=== PATIENT | female | born 1990 | race American Indian/Alaskan Native ===

== ENCOUNTER 2018-12-03 09:00 | Emergency (ER) | payer MEDICAID, OTHER ==
[2018-12-03 09:15] VITALS: BP 138/81
[2018-12-03] MEDS ORDERED: CLEOCIN PO ONE (09:49)
[2018-12-03] MEDS ORDERED: IBUPROFEN PO ONE (09:49)
--- NOTE | 2018-12-03 09:52 | Emergency Department Report ---
ED ENT HPI - General Chief complaint: Dental/Oral Stated complaint: TOOTHACHE Time Seen by Provider: 12/03/18 09:34 Source: patient Mode of arrival: Ambulatory Limitations: No Limitations - History of Present Illness Initial comments: Patient is presenting with pain in tooth #17 for the past 2-3 days. There's been some increased swelling of the jaw. Patient has no difficulty swallowing or breathing. Patient states the pain is 8 out of 10 in severity. Patient states there is some radiation of the pain to the left ear. - Related Data Previous Rx's Medication Instructions Recorded Last Taken Type traMADol [Ultram 50 MG tab] 50 mg PO Q6HR PRN #14 tablet 07/21/14 Unknown Rx Penicillin Vk [Veetids TAB] 500 mg PO QID 10 Days tablet 05/24/15 Unknown Rx Clindamycin [Clindamycin CAP] 300 mg PO Q8H #21 cap 12/03/18 Unknown Rx HYDROcodone/ACETAMINOPHEN 1 each PO Q6HR PRN #12 tablet 12/03/18 Unknown Rx [Hydrocodone-Acetamin 5-325 mg] Ibuprofen [Ibu] 800 mg PO Q8H PRN #20 tablet 12/03/18 Unknown Rx Allergies Allergy/AdvReac Type Severity Reaction Status Date / Time shellfish derived Allergy Rash Verified 12/03/18 09:12 ED Dental HPI - General Chief complaint: Dental/Oral Stated complaint: TOOTHACHE Time Seen by Provider: 12/03/18 09:34 Source: patient Mode of arrival: Ambulatory Limitations: No Limitations - Related Data Previous Rx's Medication Instructions Recorded Last Taken Type traMADol [Ultram 50 MG tab] 50 mg PO Q6HR PRN #14 tablet 07/21/14 Unknown Rx Penicillin Vk [Veetids TAB] 500 mg PO QID 10 Days tablet 05/24/15 Unknown Rx Clindamycin [Clindamycin CAP] 300 mg PO Q8H #21 cap 12/03/18 Unknown Rx HYDROcodone/ACETAMINOPHEN 1 each PO Q6HR PRN #12 tablet 12/03/18 Unknown Rx [Hydrocodone-Acetamin 5-325 mg] Ibuprofen [Ibu] 800 mg PO Q8H PRN #20 tablet 12/03/18 Unknown Rx Allergies Allergy/AdvReac Type Severity Reaction Status Date / Time shellfish derived Allergy Rash Verified 12/03/18 09:12 ED Review of Systems ROS: Stated complaint: TOOTHACHE Other details as noted in HPI Comment: All other systems reviewed and negative ED Past Medical Hx - Surgical History Hx Breast Surgery: Yes (LUMPECTOMY) Additional Surgical History: Lumpectomy on Left Breast - Social History Smoking Status: Current Every Day Smoker Substance Use Type: Alcohol - Medications Home Medications: Home Medications Medication Instructions Recorded Confirmed Last Taken Type traMADol [Ultram 50 MG tab] 50 mg PO Q6HR PRN #14 tablet 07/21/14 Unknown Rx Penicillin Vk [Veetids TAB] 500 mg PO QID 10 Days tablet 05/24/15 Unknown Rx Clindamycin [Clindamycin CAP] 300 mg PO Q8H #21 cap 12/03/18 Unknown Rx HYDROcodone/ACETAMINOPHEN 1 each PO Q6HR PRN #12 tablet 12/03/18 Unknown Rx [Hydrocodone-Acetamin 5-325 mg] Ibuprofen [Ibu] 800 mg PO Q8H PRN #20 tablet 12/03/18 Unknown Rx ED Physical Exam - General Limitations: No Limitations General appearance: alert, in no apparent distress - Head Head exam: Present: atraumatic, normocephalic - Eye Eye exam: Present: normal appearance - ENT ENT exam: Present: mucous membranes moist - Expanded ENT Exam Expanded Teeth exam: Present: dental caries 1 - Fractured, Dental Tenderness, Other (name of on palpation. There is also some swelling to the jaw externally.) - Neck Neck exam: Present: normal inspection - Respiratory Respiratory exam: Present: normal lung sounds bilaterally. Absent: respiratory distress, wheezes, rales - Cardiovascular Cardiovascular Exam: Present: regular rate, normal rhythm. Absent: systolic murmur, diastolic murmur, rubs, gallop - GI/Abdominal GI/Abdominal exam: Present: soft, normal bowel sounds - Extremities Exam Extremities exam: Present: normal inspection - Back Exam Back exam: Present: normal inspection - Neurological Exam Neurological exam: Present: alert, oriented X3 - Psychiatric Psychiatric exam: Present: normal affect, normal mood - Skin Skin exam: Present: warm, dry, intact, normal color. Absent: rash ED Course Vital Signs 12/03/18 09:12 Temperature 97.8 F Pulse Rate 91 H Respiratory 16 Rate Blood Pressure 138/81 ED Medical Decision Making - Medical Decision Making Patient with early dental abscess. Patient started on meds for symptomatic relief and antibiotics will be referred to a dentist Critical care attestation.: If time is entered above; I have spent that time in minutes in the direct care of this critically ill patient, excluding procedure time. ED Disposition Clinical Impression: Dental abscess, Facial cellulitis Disposition: TO HOME OR SELFCARE Is pt being admited?: No Does the pt Need Aspirin: No Condition: Stable Instructions: Dental Abscess (ED) Time of Disposition: 09:51
== END 2018-12-03 10:25 | disposition home or self-care (01) ==
LOC: ED 09:00
DX: K04.7 Periapical abscess without sinus (principal); L03.211 Cellulitis of face; F17.200 Nicotine dependence, unspecified, uncomplicated
CPT/HCPCS: 99282

== ENCOUNTER 2019-04-05 13:37 | Emergency (ER) | payer OTHER ==
--- NOTE | 2019-04-05 13:43 | Event Note ---
ED Screening Note Date of service: 04/05/19 Time: 13:41 ED Screening Note: This initial assessment/diagnostic orders/clinical plan/treatment(s) is/are subject to change based on patients health status, clinical progression and re- assessment by fellow clinical providers in the ED. Further treatment and workup at subsequent clinical providers discretion. Patient/guardian urged not to elope from the ED as their condition may be serious if not clinically assessed and managed. Initial orders include:
[2019-04-05 13:44] VITALS: BP 122/80
--- NOTE | 2019-04-05 13:48 | Emergency Department Report ---
Chief Complaint: Chest Pain Stated Complaint: CHEST PAIN/BACK PAIN - HPI History of Present Illness: 29 y/o female comes in for upper back and intermittent chest discomfort for 1 month. Has not taking anything for pain. - ROS Review of Systems: Back pain times 1 month no trauma no pain medication. - Exam Physical Exam: AxO times 3. FROM Normal gait. MSE screening note: Focused history and physical exam performed. Due to findings the following was ordered: Patient referred to [facility]. ED Disposition for MSE Clinical Impression: Back pain Disposition: DC- TO HOME OR SELFCARE Is pt being admited?: No Does the pt Need Aspirin: No Condition: Stable Instructions: Back Pain (ED) Additional Instructions: Try taking Ibuprofen 6oomg daily follow up at [facility]. Referrals: SHONNA BROOKS MD [Primary Care Provider] - 3-5 Days [facility] [Provider Group] - 3-5 Days Forms: Work/School Release Form(ED)
== END 2019-04-05 14:38 | disposition home or self-care (01) ==
LOC: ED 13:37
DX: M54.89 Other dorsalgia (principal); R07.89 Other chest pain
CPT/HCPCS: 99281